=== PATIENT | male | born 1965 | race Caucasian/White ===

== ENCOUNTER 2018-10-23 22:23 | Emergency (ER) | payer OTHER ==
[2018-10-23 22:31] VITALS: BP 152/100; PULSE 89; TEMP 98.1; BMI 27.2
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
[2018-10-23] MEDS ORDERED: IBUPROFEN 600 MG TABLET (FP) PO ONE ×2 (23:52→23:54)
== END 2018-10-23 23:58 | disposition home or self-care (01) ==
LOC: FER 22:23
DX: S13.4XXA Sprain of ligaments of cervical spine, initial encounter (principal); V43.52XA Car driver injured in collision with other type car in traffic accident, initial encounter; Y93.89 Activity, other specified; Y92.410 Unspecified street and highway as the place of occurrence of the external cause
CPT/HCPCS: 72050-TC-FY; 72125-TC; 99281-25